=== PATIENT | female | born 1980 | race Caucasian/White ===

== ENCOUNTER → 2018-10-17 13:54 | Outpatient (CLI) | payer BC | END | disposition home or self-care (01) | LOC: D.RAD 10-14 10:30 | PROVIDERS: ATTEND Orthopaedic Surgery | DX: M25.552 Pain in left hip (principal) ==

== ENCOUNTER 2018-10-30 08:38 | Day surgery (SDC) | payer MEDICAID ==
[~2018-10-30] VITALS: Ht 154.9 cm; Wt 107.0 kg
[~2018-10-30 08:38] MED LIST: IBUPROFEN800 MG PO; NEURONTIN 300300 MG PO; ZANAFLEX4 MG PO
[2018-10-30 09:04] LABS: HEMATOCRIT 42.8 % (36.0-48.0); HEMOGLOBIN 14.1 g/dL (12-16); MCH 26.8 pg (26.0-34.0); MCHC 32.9 g/dL (31.0-37.0); MCV 81.4 fL (80.0-100.0); MEAN PLATELET VOLUME 10.6 fL (7.4-10.4); RBC 5.26 10x6/uL (4.00-5.40); RDW 14.2 % (11.5-14.5); WBC 9.8 10x3/uL (4.8-10.8)
[2018-10-30 09:23] VITALS: BP 150/84; Ht 154.9 cm; Wt 107.0 kg
[2018-10-30 09:40] LABS: HCG URINE NEGATIVE (NEGATIVE)
[2018-10-30] MEDS ORDERED: HYDROCODON-ACE1 EA10 PO (10:54)
--- NOTE | 2018-10-30 13:02 | NUR ---
DC INSTRUCTIONS GIVEN TO PT/FAMILY. STATE UNDERSTANDING. DC'D IV CATH FULLY INTACT. PT STATES DECREASED AMOUNT OF PAIN. PAIN LEVEL 5/10 AT THIS TIME.
--- NOTE | 2018-10-30 13:25 | NUR ---
PT LEFT UNIT VIA WC AT 1320
--- NOTE | 2018-11-02 11:22 | OP ---
PATIENT NAME: DIONNE COLLINS MEDICAL RECORD: [id number] :82 LOCATION:[facility] ADMISSION DATE: SURGEON: EMILIANO BOWEN MD DATE OF OPERATION: 10/30/2018 PREOPERATIVE DIAGNOSES: 1. Patellofemoral syndrome of the left knee. 2. Left hip pain - intra-articular. PREOPERATIVE DIAGNOSES: 1. Patellofemoral syndrome of the left knee. 2. Left hip pain - intra-articular. PROCEDURES: 1. Left knee arthroscopy with arthroscopic lateral release. 2. Intra-articular injection of the left hip under fluoroscopic guidance. SURGEON: Emiliano Bowen MD ANESTHESIA: General. INTRAOPERATIVE COMPLICATIONS: None. 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 Furthermore, an area of grade II chondromalacia was seen on the medial femoral condyle. All other structures were intact without evidence of damage. OPERATIVE SUMMARY IN DETAIL: After obtaining the appropriate preoperative orthopedic surgery consent as well as anesthetic consultation, evaluation, and clearance, the patient was brought to the operating room and placed on the operating table in the supine position. After adequate general laryngeal mask airway was administered, the patient's left hip was prepped and draped in routine sterile fashion. Under fluoroscopic guidance, an 18-gauge spinal needle was directed into the hip capsule. Small amount of Isovue was used to assure the appropriate position of the spinal needle and then 40 mg of Depo-Medrol with 5 cc of 0.25% Marcaine with epinephrine was injected into the patient's hip capsule with little degree of difficulty. Needle tip was withdrawn. Bandage was applied. At this point, the patient's left lower extremity was prepared with a tourniquet. It was then prepped and draped in a routine sterile fashion. Leg was elevated and exsanguinated. Tourniquet was inflated to 350 mmHg. Routine inferolateral portal was established in the left knee followed by superomedial and inferomedial portal. Diagnostic arthroscopy revealed the above findings as noted and then, from the medial portal, under direct visualization, the lateral retinacular was released from just beneath the vastus lateralis to the inferolateral portal. Having completed this, knee was insufflated with 30 cc of 0.25% Marcaine with epinephrine and 40 mg of Depo-Medrol. Arthroscopy portals were closed in routine interrupted fashion using 4-0 Prolene. Sterile dressings were applied. Tourniquet was deflated. The patient was awakened and taken to the recovery room in stable condition. All final needle and sponge counts were correct. TRANSINT:[id number] Voice Confirmation ID: [id number] DOCUMENT ID: [id number] OPERATIVE REPORT [id number] DIONNE COLLINS MD, EMILIANO SHAW at 1122 CC: [id number] DICTATION DATE: 10/30/18 1142 [employer] PRESIDENT/PRACTICE OWNER: 10/30/18 1451 [facility] [place] 10/30/18 [facility] [address] [place] [address]
== END 2018-10-30 13:20 | disposition home or self-care (01) ==
LOC: D.OPS 08:38 → D.PAN 12:00 → D.OPS 13:20
PROVIDERS: Anesthesiology; ATTEND Orthopaedic Surgery
DX: M22.2X2 Patellofemoral disorders, left knee (principal); M25.552 Pain in left hip; M94.262 Chondromalacia, left knee; Z01.812 Encounter for preprocedural laboratory examination